=== PATIENT | female | born 1995 | race Caucasian/White ===

== ENCOUNTER 2018-12-01 07:52 | Emergency (ER) | payer BC ==
[~2018-12-01] VITALS: Ht 154.9 cm; Wt 50.0 kg
[2018-12-01 07:59] VITALS: Ht 154.9 cm; Wt 50.0 kg
[2018-12-01 09:40] VITALS: BP 110/68
== END 2018-12-01 09:41 | disposition home or self-care (01) ==
LOC: D.ER 07:52
DX: T76.21XA Adult sexual abuse, suspected, initial encounter (principal)